=== PATIENT | female | born 1975 | race Caucasian/White ===

== ENCOUNTER 2019-07-29 10:27 | Emergency (ER) | payer SELFPAY | END 2019-07-29 11:51 | disposition home or self-care (01) | LOC: BURERS 10:27 | DX: M79.651 Pain in right thigh (principal); J45.909 Unspecified asthma, uncomplicated; F17.210 Nicotine dependence, cigarettes, uncomplicated; Z86.718 Personal history of other venous thrombosis and embolism; Z79.899 Other long term (current) drug therapy; Z79.82 Long term (current) use of aspirin | CPT/HCPCS: 36415; 85379; 99283 ==

== ENCOUNTER 2019-10-15 13:28 | Emergency (ER) | payer SELFPAY ==
[2019-10-15 13:55] LABS: #Basophils 0.1 thou/uL (0.0-0.2); #Eosinphils 0.1 thou/uL (0.0-0.7); #Lymphocytes 2.4 thou/uL (1.20-3.40); #Monocytes 0.3 thou/uL (0.11-0.59); #Neutrophils 3.8 thou/uL (1.40-6.50); %Basophils 0.9 % (0.0-1.0); %Eosinophils 1.8 % (0.0-10.0); %Monocytes 4.5 % (0.0-10.0); %Neutrophils 56.8 % (42.0-75.0); Hemoglobin 13.5 g/dL (12.0-16.0); Mean Corpuscular HGB CONC 31.3 g/dL (32.0-36.0); Mean Corpuscular Hemoglobin 30.6 pg (27.0-31.0); Mean Corpuscular Volume 97.8 fL (78.0-98.0); Mean Platelet Volume 11.6 fL (7.4-10.4); Platelet Count 260 thou/uL (130-400); RBC Distribution Width 13.3 % (11.5-14.5); Red Blood Cell (RBC) Count 4.41 mill/uL (4.20-5.40); White Blood Cell (WBC) Count 6.6 thou/uL (4.8-10.8)
[2019-10-15 14:12] LABS: ALT (SGPT) 19 U/L (8-55); AST (SGOT) 13 U/L (5-34); Alkaline Phosphatase 73 U/L (40-110); Anion Gap 11 mmol/L (10-20); BUN (Urea Nitrogen) 7 mg/dL (7.0-18.7); Bilirubin, Total 0.5 mg/dL (0.2-1.2); Calc. Creatinine Clearance 0 mL/min (70-130); Calcium 9.2 mg/dL (7.8-10.44); Carbon Dioxide 26 mmol/L (22-29); Chloride 106 mmol/L (98-107); Estimated GFR-MDRD 75; Globulin 2.5 g/dL (2.4-3.5); Glucose 128 mg/dL (70-105); Potassium 3.4 mmol/L (3.5-5.1); Protein, Total 6.5 g/dL (6.0-8.3); Sodium 140 mmol/L (136-145)
--- NOTE | 2019-10-15 19:26 | RAD ---
PORTABLE CHEST: 10/15/19 The heart is, at most upper normal in size. Given an AP projection, it may actually be normal. There is no vascular congestion or edema. There is no pleural effusion or focal pulmonary infiltrate. IMPRESSION: No acute thoracic finding. POS: HOME
== END 2019-10-15 14:31 | disposition home or self-care (01) ==
LOC: BURERS 13:28
DX: R07.9 Chest pain, unspecified (principal); J44.9 Chronic obstructive pulmonary disease, unspecified; F17.210 Nicotine dependence, cigarettes, uncomplicated; Z86.73 Personal history of transient ischemic attack (TIA), and cerebral infarction without residual deficits
CPT/HCPCS: 71045; 80053; 83880; 84484; 85025; 85379; 93005

== ENCOUNTER 2019-11-20 09:31 | Emergency (ER) | payer SELFPAY ==
[2019-11-20] MEDS ORDERED: HYDROcodone/Acetaminophen 10/325 mg Tablet ONE (10:07)
[2019-11-20] MEDS ORDERED: Ibuprofen 200 MG TAB ONE (10:08)
--- NOTE | 2019-11-20 13:25 | CT ---
CT LUMBAR SPINE WITHOUT CONTRAST: DATE: 11/20/2019. FINDINGS: A spiral CT of the lumbar spine was done for evaluation of back pain. There is no evidence of fracture, dislocation, or focal disk herniation. A vacuum phenomenon is seen in the right facet joint at L4-L5, generally thought to be due to degenerative change. The surround ing soft tissues were unremarkable. IMPRESSION: No acute traumatic findings. Preliminary report called to Dr. Morales at 1028 on 11/20/2019. CODE CR POS: HOME
== END 2019-11-20 10:42 | disposition home or self-care (01) ==
LOC: BURERS 09:31
DX: M54.41 Lumbago with sciatica, right side (principal); Z86.718 Personal history of other venous thrombosis and embolism; F17.210 Nicotine dependence, cigarettes, uncomplicated
CPT/HCPCS: 72131

== ENCOUNTER 2020-01-28 21:34 | Emergency (ER) | payer SELFPAY ==
[2020-01-28] MEDS ORDERED: Magnesium 2 GM/50 ML BAG (IN WATER) ONE (22:02)
[2020-01-28] MEDS ORDERED: Ketorolac Tromethamine 30 MG/ML VIAL ONE (22:32)
[2020-01-28] MEDS ORDERED: diphenhydrAMINE 50 MG/ML VIAL ONE (22:33)
[2020-01-28] MEDS ORDERED: Metoclopramide HCl 10 MG/2 ML VIAL ONE (22:39)
== END 2020-01-28 23:14 | disposition home or self-care (01) ==
LOC: BURERS 21:34
DX: G43.909 Migraine, unspecified, not intractable, without status migrainosus (principal); E78.5 Hyperlipidemia, unspecified; E78.00 Pure hypercholesterolemia, unspecified; J44.9 Chronic obstructive pulmonary disease, unspecified; F17.210 Nicotine dependence, cigarettes, uncomplicated; Z79.899 Other long term (current) drug therapy
CPT/HCPCS: 96365; 96367; 96375; J1200; J1885; J2765; J3475

== ENCOUNTER 2020-02-08 15:58 | Emergency (ER) | payer OTHER, SELFPAY ==
[2020-02-08] MEDS ORDERED: HYDROcodone/Acetaminophen 10/325 mg Tablet ONE (16:34)
[2020-02-08] MEDS ORDERED: AMOXicillin 250 MG CAP ONE (16:34)
[2020-02-09 19:05] LABS: SARS-CoV-2 MS2 Positive; SARS-CoV-2 N Gene Negative; SARS-CoV-2 S Gene Negative; SARS-CoV-2 by NAA Not Detected (NotDetected); SARS-CoV-2 orf1ab Negative
== END 2020-02-08 16:57 | disposition home or self-care (01) ==
LOC: BURERS 15:58
DX: S39.92XA Unspecified injury of lower back, initial encounter (principal); J06.9 Acute upper respiratory infection, unspecified; G89.29 Other chronic pain; M54.6 Pain in thoracic spine; J45.909 Unspecified asthma, uncomplicated; F17.210 Nicotine dependence, cigarettes, uncomplicated; Z79.899 Other long term (current) drug therapy; Z20.828 Contact with and (suspected) exposure to other viral communicable diseases; X50.1XXA Overexertion from prolonged static or awkward postures, initial encounter
CPT/HCPCS: 87635; 99283; U0003